=== PATIENT | male | born 1990 | race African-American/Black ===

== ENCOUNTER 2024-11-14 21:01 | Inpatient (IN) | payer MEDICAID ==
[~2024-11-14] VITALS: Ht 170.2 cm; Wt 67.2 kg
[2024-11-14 21:10] VITALS: O2SAT 100
[2024-11-14] MEDS: ONDANSETRON HCL 4MG/2ML INJ IV ONE (22:24)
[2024-11-14] MEDS: SODIUM CHLORIDE 0.9% 1,000 ML IV ONE (22:24)
[2024-11-14 22:36] LABS: BASOPHILS % 0.9 % (0.0-2.0); EOSINOPHILS % 0.8 % (0.0-5.0); HEMATOCRIT. 52.6 % (42.0-52.0); HEMOGLOBIN. 17.9 g/dL (14.0-18.0); LYMPHOCYTES % 26.0 % (20.0-50.0); MONOCYTES % 7.4 % (2.0-8.0); NEUTROPHILS % 64.9 % (40.0-76.0); RED BLOOD CELL COUNT 5.96 mill/uL (4.7-6.1); RED CELL DISTRIBUTION WIDTH 12.6 % (11.6-14.6)
[2024-11-14 22:49] LABS: CREATININE 1.6 mg/dL (0.6-1.3)
[2024-11-14 22:50] LABS: UREA NITROGEN BLOOD 11 mg/dL (9-23)
[2024-11-14 22:51] LABS: ASPARTATE AMINOTRANSFERASE 17 IU/L (<34); BILIRUBIN DIRECT 0.1 mg/dL (<=3.0)
[2024-11-14 22:52] LABS: BILIRUBIN TOTAL 0.5 mg/dL (0.1-1.0); PROTEIN TOTAL 8.4 g/dL (6.0-8.3)
[2024-11-14 23:42] LABS: CLARITY URINE CLEAR (CLEAR); COLOR URINE YELLOW (YELLOW); GLUCOSE URINE 3+ (NEGATIVE); KETONES URINE 4+ (NEGATIVE); LEUKOCYTE ESTERASE URINE NEGATIVE (NEGATIVE); NITRITE URINE NEGATIVE (NEGATIVE); OCCULT BLOOD URINE TRACE (NEGATIVE); PH URINE 5.5 (4.5-8.0); PROTEIN URINE 1+ (NEGATIVE); SPECIFIC GRAVITY URINE 1.038 (1.005-1.030); UROBILINOGEN URINE 0.2 E.U./dL (0.2-1.0)
[2024-11-14 23:43] LABS: MEAN PLATELET VOLUME 9.9 fl (7.4-10.4); PLATELET 212 x1000/uL (130-400)
[2024-11-15] VITALS (69 sets, daily range): BP systolic 78–181; BP diastolic 55–150; PULSE 59–88; RESP 14–29; TEMP 36.6–36.9; O2SAT 96–100
[2024-11-15 00:30] LABS: BACTERIA URINE NONE SEEN; RBC URINE 0-2 /hpf (0-2); SQUAMOUS EPITHELIAL CELL URINE NONE SEEN /lpf (RARE/1+); WBC URINE 0-2 /hpf (0-2)
[2024-11-15] MEDS ORDERED: BLOOD SUGAR DIAGNOSTIC STRIP TEST PRN ×2 (00:30→01:00)
[2024-11-15] MEDS ORDERED: POTASSIUM CHLORIDE 40 MEQ in SODIUM CHLORIDE 0.9% 230 ML IV PRN ×2 (00:30→01:00)
[2024-11-15] MEDS ORDERED: DEXT 5%/0.9% NACL 1,000 ML IV SCH (00:30)
[2024-11-15] MEDS ORDERED: KCL 20MEQ/100ML PREMIX 100 ML IV PRN (00:30)
[2024-11-15] MEDS ORDERED: DEXTROSE 50% WATER 50ML SYRINGE IV PRN ×3 (00:30→14:15)
[2024-11-15] MEDS ORDERED: MAGNESIUM 2 G PREMIX 50 ML IV PRN (00:30)
[2024-11-15] MEDS ORDERED: BLOOD SUGAR DIAGNOSTIC STRIP TEST SCH (00:30)
[2024-11-15] MEDS ORDERED: SODIUM CHLORIDE 0.9% 1,000 ML IV SCH (01:00)
[2024-11-15] MEDS ORDERED: DOCUSATE SODIUM 100MG CAPSULE PO PRN (01:00)
[2024-11-15] MEDS ORDERED: IPRATROPIUM/ALBUTEROL 0.5-3(2.5)MG/3ML NEB HHN PRN (01:00)
[2024-11-15] MEDS ORDERED: SODIUM PHOSPHATE 15 MMOL in SODIUM CHLORIDE 0.9% 245 ML IV PRN (01:00)
[2024-11-15] MEDS ORDERED: MAGNESIUM/ALUMINUM HYDROXIDE/SIMETHICONE 30ML UDC PO PRN (01:00)
[2024-11-15] MEDS ORDERED: GUAIFENESIN 200MG/10ML SUGAR FREE UDC PO PRN (01:00)
[2024-11-15] MEDS ORDERED: ONDANSETRON HCL 4MG/2ML INJ IV PRN (01:00)
[2024-11-15] MEDS: BLOOD SUGAR DIAGNOSTIC STRIP TEST SCH ×2 (01:00→16:30)
[2024-11-15] MEDS ORDERED: ACETAMINOPHEN 325MG TABLET PO PRN ×2 (01:00)
[2024-11-15] MEDS: SODIUM CHLORIDE 0.9% 1,000 ML IV SCH (01:04)
[2024-11-15 01:05] LABS: BG BASE EXCESS -9.3 mmol/L (-2.0-3.0); BG CARBOXYHEMOGLOBIN 0.5 % (0.5-1.5); BG DEOXYHEMOGLOBIN 3.2 % (0.0-5.0); BG FRACTION INSPIRED OXYGEN 21; BG HCO3 ACT 15.4 mmol/L (21.0-28.0); BG METHEMOGLOBIN 0.4 % (0.5-1.5); BG OXYGEN SATURATION 96.8 % (94.0-98.0); BG OXYHEMOGLOBIN 95.9 % (94.0-98.0); BG PCO2 31.6 mmHg (35.0-48.0); BG PH 7.306 (7.350-7.450); BG PO2 89.9 mmHg (83.0-108.0); BG SAMPLE SITE RIGHT RADIAL; BG TOTAL HEMOGLOBIN 18.5 g/dL (13.5-17.5); BG VENT MODE ROOM AIR
[2024-11-15] MEDS: INSULIN REGULAR 100U/100ML PMX 100 ML IV SCH ×2 (01:10→03:18)
[2024-11-15 01:53] LABS: TROPONIN I HIGH SENSITIVITY 5 ng/L (3.0-53)
[2024-11-15] MEDS ORDERED: INSULIN REGULAR 100U/100ML PMX 100 ML IV SCH ×2 (03:00→12:45)
[2024-11-15] MEDS: DEXT 5%/0.9% NACL 1,000 ML IV SCH (03:15)
[2024-11-15] MEDS: KCL 20MEQ/100ML PREMIX 100 ML IV PRN (03:29)
[2024-11-15 06:27] LABS: CREATININE 1.2 mg/dL (0.6-1.3)
[2024-11-15 06:28] LABS: UREA NITROGEN BLOOD 7 mg/dL (9-23)
[2024-11-15 06:30] LABS: PHOSPHORUS 1.6 mg/dL (2.5-4.9)
[2024-11-15] MEDS: PANTOPRAZOLE SODIUM 40 MG/VIAL IV SCH (09:04)
[2024-11-15] MEDS: CLONIDINE 0.1MG TABLET PO PRN (09:08)
[2024-11-15 09:25] LABS: PLATELET 170 x1000/uL (130-400); RED BLOOD CELL COUNT 4.85 mill/uL (4.7-6.1); RED CELL DISTRIBUTION WIDTH 12.5 % (11.6-14.6)
[2024-11-15 09:40] LABS: CREATININE 1.1 mg/dL (0.6-1.3); PHOSPHORUS 1.4 mg/dL (2.5-4.9); UREA NITROGEN BLOOD 7 mg/dL (9-23)
[2024-11-15] MEDS: INSULIN GLARGINE 100 UNITS/ML SUBCUT SCH ×2 (10:28→21:07)
[2024-11-15 12:10] LABS: PHOSPHORUS 1.6 mg/dL (2.5-4.9)
[2024-11-15] MEDS: INSULIN GLARGINE 100 UNITS/ML SUBCUT NR (12:41)
[2024-11-15] MEDS: MAGNESIUM 2 G PREMIX 50 ML IV PRN (13:52)
[2024-11-15] MEDS: INSULIN LISPRO 100 UNITS/ML SUBCUT SCH ×2 (13:58→16:30)
[2024-11-15 15:54] LABS: *AMPHETAMINES SCREEN URINE NEGATIVE (NEGATIVE); *BARBITURATES SCREEN URINE NEGATIVE (NEGATIVE); *BENZODIAZEPINES SCREEN URINE NEGATIVE (NEGATIVE); *COCAINE SCREEN URINE NEGATIVE (NEGATIVE); METHADONE URINE SCREEN NEGATIVE (NEGATIVE); OPIATES URINE SCREEN NEGATIVE (NEGATIVE); PHENCYCLIDINE URINE SCREEN NEGATIVE (NEGATIVE)
[2024-11-15 15:55] LABS: CANNABINOID URINE SCREEN PRESUMPTIVE POSITIVE (NEGATIVE); ECSTASY MDMA SCREEN URINE NEGATIVE (NEGATIVE)
[2024-11-15 16:05] LABS: CREATININE 1.1 mg/dL (0.6-1.3); UREA NITROGEN BLOOD 6 mg/dL (9-23)
[2024-11-16] VITALS: BP 135/78; PULSE 65; RESP 22; TEMP 36.8; O2SAT 98
[2024-11-16 05:00] VITALS: BP 132/76; PULSE 66; RESP 20; O2SAT 98
[2024-11-16 08:00] VITALS: BP 120/76; PULSE 64; RESP 22; TEMP 36.8; O2SAT 97
[2024-11-16 08:51] LABS: BASOPHILS % 1.0 % (0.0-2.0); EOSINOPHILS % 2.1 % (0.0-5.0); HEMATOCRIT. 40.5 % (42.0-52.0); HEMOGLOBIN. 13.7 g/dL (14.0-18.0); LYMPHOCYTES % 46.3 % (20.0-50.0); MEAN PLATELET VOLUME 10.3 fl (7.4-10.4); MONOCYTES % 7.8 % (2.0-8.0); NEUTROPHILS % 42.8 % (40.0-76.0); PLATELET 163 x1000/uL (130-400); RED BLOOD CELL COUNT 4.56 mill/uL (4.7-6.1); RED CELL DISTRIBUTION WIDTH 12.5 % (11.6-14.6)
[2024-11-16 08:55] LABS: CREATININE 0.9 mg/dL (0.6-1.3)
[2024-11-16 08:56] LABS: LDL CHOLESTEROL 124 mg/dL (5-100); TRIGLYCERIDE 155 mg/dL (0-150); UREA NITROGEN BLOOD < 5 mg/dL (9-23)
[2024-11-16] MEDS: POTASSIUM CHLORIDE 20MEQ/PACKET PO NR (11:50)
[2024-11-16 12:00] VITALS: BP 128/73; PULSE 68; RESP 15; TEMP 36.8; O2SAT 100
[2024-11-16] MEDS: INSULIN LISPRO 100 UNITS/ML SUBCUT SCH (16:50)
[2024-11-16 20:00] VITALS: BP 129/79; PULSE 69; RESP 16; TEMP 36.9; O2SAT 99
[2024-11-17 00:15] VITALS: BP 146/93; PULSE 72; RESP 17; TEMP 36.9; O2SAT 97
[2024-11-17 04:31] VITALS: BP 115/73; PULSE 69; RESP 14; TEMP 37; O2SAT 97
[2024-11-17 08:00] VITALS: BP 114/80; PULSE 78; RESP 16; TEMP 36.5; O2SAT 100
[2024-11-17 10:10] LABS: PLATELET 157 x1000/uL (130-400); RED BLOOD CELL COUNT 4.95 mill/uL (4.7-6.1); RED CELL DISTRIBUTION WIDTH 12.9 % (11.6-14.6)
[2024-11-17 10:33] LABS: CREATININE 1.1 mg/dL (0.6-1.3)
[2024-11-17 10:34] LABS: UREA NITROGEN BLOOD 9 mg/dL (9-23)
[2024-11-17 10:36] LABS: PHOSPHORUS 3.5 mg/dL (2.5-4.9)
[2024-11-17 12:00] VITALS: BP 134/94; PULSE 79; RESP 20; O2SAT 99
[2024-11-17] MEDS: MAGNESIUM 2 G PREMIX 50 ML IV SCH (12:16)
[2024-11-17] MEDS ORDERED: FAMO-135 MT (12:19)
[2024-11-17] MEDS ORDERED: LANTUSUD SUBCUT ×2 (12:19→12:20)
[2024-11-17 15:38] VITALS: BP 140/97; PULSE 84; RESP 18; TEMP 97.9
[2024-11-17 15:47] VITALS: BP 140/97; PULSE 84; RESP 18; TEMP 36.6; O2SAT 97
== END 2024-11-17 16:50 | disposition home or self-care (01) | DRG 420 ==
LOC: ER 21:01 → MICUSO 11-15 00:45 → EDBEDREQTM 11-15 00:52 → EDBEDREQSVC 11-15 00:52 → EDBEDREQ 11-15 00:52 → EDBEDREQDT 11-15 00:52 → 3WST 11-15 21:39
PROVIDERS: ADMIT Internal Medicine; ATTEND Internal Medicine
DX: E11.10 Type 2 diabetes mellitus with ketoacidosis without coma (principal); E83.39 Other disorders of phosphorus metabolism; E78.5 Hyperlipidemia, unspecified; F12.90 Cannabis use, unspecified, uncomplicated; I10 Essential (primary) hypertension; E83.42 Hypomagnesemia; E87.6 Hypokalemia; Z55.6 Problems related to health literacy; Z79.4 Long term (current) use of insulin; Z83.3 Family history of diabetes mellitus; Z91.148 Patient's other noncompliance with medication regimen for other reason; Z79.899 Other long term (current) drug therapy
CPT/HCPCS: 36415; 36600; 71045; 80048; 80051; 80061; 80076; 80305; 81003; 82010; 82375; 82550; 82805; 82962; 83036; 83605; 83735; 83930; 84100; 84145; 84443; 84484; 85025; 85027; 93005; 96361; 96374; 99291; J1815; J2405; J2470; J3475; J3480; J7030